=== PATIENT | male | born 2000 | race Two or more races ===

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

== ENCOUNTER → 2019-01-31 | Outpatient (CLI) | payer BC, MEDICAID ==
--- NOTE | 2019-01-31 12:38 | RADIOLOGY REPORT (SQ) ---
EXAM DESCRIPTION: CHEST SINGLE VIEW COMPLETED DATE/TIME: 01/31/2019 12:20 pm REASON FOR STUDY: PRE-OP COMPARISON: None. EXAM PARAMETERS: NUMBER OF VIEWS: One view. TECHNIQUE: Single frontal radiographic view of the chest acquired. RADIATION DOSE: NA LIMITATIONS: None. FINDINGS: LUNGS AND PLEURA: Mild bilateral peribronchial cuffing. There is no consolidation, pleura l effusion or pneumothorax MEDIASTINUM AND HILAR STRUCTURES: No mediastinal or hilar contour abnormality. HEART AND VASCULAR STRUCTURES: The cardiac silhouette and pulmonary vasculature are within normal lopez its. BONES: S shaped rotoscoliosis of the thoracolumbar spine. HARDWARE: Battery pack projecting over the left hemithorax. OTHER: No other finding. IMPRESSION: Bilateral peribronchial cuffing. Correlate with clinical findings to exclude and infect ious or inflammatory small airway disease. TECHNICAL DOCUMENTATION: JOB ID: [id number] [employer]- All Rights Reserved Reading location - IP/workstation name: [email or web address]
--- NOTE | 2019-01-31 22:22 | EKG REPORT ---
SEVERITY:- DEFECTIVE ECG - SINUS TACHYCARDIA DASELINE ARTIFACT. : Confirmed by: Adriana Lin MD 31-Jan-2019 22:21:38
== END ==
LOC: OD 11:50
PROVIDERS: ATTEND Family Medicine
DX: Z01.818 Encounter for other preprocedural examination (principal)
CPT/HCPCS: 71045; 93005; 93010

== ENCOUNTER 2019-03-11 11:21 | Inpatient (IN) | payer BC, MEDICAID ==
[2019-03-11] MEDS ORDERED: KETOROLAC TROMETHAMINE INJ/PF 30 MG/1 ML SDV IV ONE (11:48)
[2019-03-11] MEDS ORDERED: NORMAL SALINE 1000 ML 1,000 ML IV ONE (11:49)
[2019-03-11] MEDS ORDERED: LIDOCAINE 2% URO-JET 5 ML KIT MM ONE (11:51)
--- NOTE | 2019-03-11 11:55 | ER Document Report ---
ED Medical Screen (RME) - General Chief Complaint: Fever Stated Complaint: FEVER Time Seen by Provider: 03/11/19 11:46 Primary Care Provider: JOHNY SHAH DO [Primary Care Provider] - Follow up as needed Mode of Arrival: Wheelchair Information source: Parent Notes: 19-year-old male presented to ED for elevated temperature low blood pressure elevated pulse and septic in appearance. He did go to the urgent care and they sent him to the emergency room due to his tachycardia and fever. He is also got a low set of 93% on 2 L oxygen he is not on oxygen at home. Respirations of 35 pulse is 137. I have started a septic work-up on him. Mother states that he is always congested due to his disabilities but he started with a fever yesterday she gave him rectal suppository of Tylenol yesterday and it seemed like it helped but today she gave him a gram of Tylenol by the tube about 10:00 and it did not bring down his temperature. We will give him Toradol IV at this time since he just had a gram of Tylenol. Start IV fluids start blood work. I have greeted and performed a rapid initial assessment of this patient. A comprehensive ED assessment and evaluation of the patient, analysis of test results and completion of medical decision making process will be conducted by an additional ED providers. TRAVEL OUTSIDE OF THE [place] IN LAST 30 DAYS: No - Related Data Allergies/Adverse Reactions: No Known Allergies Allergy (Verified 04/15/14 15:23) Past Medical History Pulmonary Medical History: Reports: Hx Respiratory Failure - wears O2 chronically at home Neurological Medical History: Reports: Hx Seizures - non verbal and not ambulatory Renal/ Medical History: Denies: Hx Peritoneal Dialysis Past Surgical History: Reports: Hx Orthopedic Surgery - Immunizations Immunizations up to date: Yes Hx Diphtheria, Pertussis, Tetanus Vaccination: No - no pertussis per mom due to seizure possibility Physical Exam - Vital signs Vitals: Temp Pulse BP Pulse Ox 99.3 F 148 H 104/51 L 89 L 03/11/19 11:36 03/11/19 11:36 03/11/19 11:36 03/11/19 11:36 Course - Vital Signs Vital signs: Temp Pulse Resp BP Pulse Ox 99.3 F 148 H 104/51 L 89 L 03/11/19 11:36 03/11/19 11:36 03/11/19 11:36 03/11/19 11:36 Doctor's Discharge - Discharge Referrals: JOHNY SHAH DO [Primary Care Provider] - Follow up as needed
[2019-03-11] MEDS: NORMAL SALINE 1000 ML 1,000 ML IV PRN ×3 (12:07→15:57)
[2019-03-11] MEDS ORDERED: CEFTRIAXONE 1 GM/D5W RTU 1 GM/50 ML RTUPB IV ONE ×2 (12:10→12:40)
[2019-03-11 12:35] LABS: HEMOGLOBIN 15.1 g/dL (13.5-17.0)
[2019-03-11 12:37] LABS: VENOUS BLOOD BASE EXCESS -0.1 mmol/L; VENOUS BLOOD HCO3 24.5 mmol/L (20-32); VENOUS BLOOD PCO2 39.8 mmHg (35-63); VENOUS BLOOD PH 7.41 (7.30-7.42)
[2019-03-11 12:38] LABS: MEAN CORPUSCULAR HEMOGLOBIN 28.8 pg (27.0-33.4); MEAN CORPUSCULAR HGB CONC 32.9 g/dL (32.0-36.0); MEAN CORPUSCULAR VOLUME 88 fl (80-97); PLATELET COUNT 220 10^3/uL (150-450); RED BLOOD COUNT 5.25 10^6/uL (4.35-5.55)
[2019-03-11 12:40] LABS: APPEARANCE,URINE CLEAR; BILIRUBIN,URINE NEGATIVE (NEGATIVE); COLOR,URINE YELLOW; GLUCOSE, URINE NEGATIVE (NEGATIVE); KETONES,URINE NEGATIVE (NEGATIVE); PROTEIN,URINE NEGATIVE (NEGATIVE); URINE SPECIFIC GRAVITY 1.016; UROBILINOGEN,URINE NEGATIVE mg/dL (<2.0)
[2019-03-11 12:40] LABS: INTERNATIONAL RATION (INR) 1.05; PROTHROMBIN TIME 13.7 SEC (11.4-15.4)
[2019-03-11 12:49] LABS: ALKALINE PHOSPHATASE 123 U/L (38-126); ANION GAP 12 (5-19); ASPARTATE AMINO TRANSFERASE 93 U/L (17-59); BILIRUBIN,DIRECT 0.2 mg/dL (0.0-0.4); BILIRUBIN,TOTAL 0.4 mg/dL (0.2-1.3); BLOOD UREA NITROGEN 9 mg/dL (7-20); CALCIUM 9.4 mg/dL (8.4-10.2); CARBON DIOXIDE 23 mmol/L (22-30); CHLORIDE 104 mmol/L (98-107); GLUCOSE 94 mg/dL (75-110); POTASSIUM 4.1 mmol/L (3.6-5.0); TOTAL PROTEIN 7.3 g/dL (6.3-8.2)
[2019-03-11 12:57] LABS: ABSOLUTE LYMPHOCYTES# (MANUAL) 5.8 10^3/uL (0.5-4.7); ABSOLUTE MONOCYTES # (MANUAL) 1.2 10^3/uL (0.1-1.4); BAND NEUTROPHILS % (MANUAL) 3 % (3-5); BASOPHILS % (MANUAL) 0 % (0-2); EOSINOPHILS % (MANUAL) 2 % (0-6); LYMPHOCYTES % (MANUAL) 40 % (13-45); MONOCYTES % (MANUAL) 10 % (3-13); SEGMENTED NEUTROPHILS % (MAN) 37 % (42-78); TOTAL CELLS COUNTED 100
[2019-03-11 12:58] LABS: ANISOCYTOSIS SLIGHT; PLATELET COMMENT ADEQUATE
--- NOTE | 2019-03-11 12:58 | ER Document Report ---
ED Fever - General Chief Complaint: Fever Stated Complaint: FEVER Time Seen by Provider: 03/11/19 11:46 Primary Care Provider: JOHNY CASTORENA DO [Primary Care Provider] - Follow up as needed Mode of Arrival: Wheelchair Information source: Parent Notes: HPI: 19-year-old debilitated male with past medical history as recorded including Mona Gestalt syndrome with frequent seizures, pneumonia about 1 year ago requiring intubation, G-tube and orally fed, presents today with the onset around 1 month ago of some nasal congestion and cough. Patient did receive an unknown antibiotic at that initial presentation at the primary care physician's office Dr. Castorena. Patient continued to have some nasal congestion with a nonproductive cough. Patient developed a fever today. Mom thought his urine was foul smelling. Went to the urgent care today and was sent here secondary to an elevated fever. No vomiting, diarrhea, or obvious complaints of pain. No increased seizures over baseline threshold. Patient did receive rectal Tylenol 1000 mg at 10 AM. Toradol was ordered in triage. ROS: See HPI Unable to obtain secondary to patient's condition Reviewed vital signs and nursing note as charted by RN. PHYSICAL EXAM: CONSTITUTIONAL: Alert but does not vocalize at baseline HEAD: Normocephalic; atraumatic EYES: PERRL; Conjunctivae clear, sclerae non-icteric ENT: Normal nose; no rhinorrhea; moist mucous membranes; pharynx without lesions noted NECK: Supple without meningismus; non-tender; no cervical lymphadenopathy, no masses CARD: Tachycardic and regular; no murmurs; symmetric distal pulses RESP: Normal chest excursion without splinting or tachypnea; scattered rhonchi at the bases ABD/GI: Normal bowel sounds; non-distended; soft, G-tube in place with no surrounding erythema, induration, or drainage; non-tender; no palpable organomegaly or masses GI/: Patient has no penile, scrotal, perineal lesions or erythema BACK: The back appears normal and is non-tender to palpation EXT: Normal ROM in all joints; non-tender to palpation; no edema SKIN: No acute lesions noted NEURO: Limited movement of all 4 extremities at baseline PSYCH: The patient's mood and manner are appropriate. Grooming and personal hygiene are appropriate. TRAVEL OUTSIDE OF THE [place] IN LAST 30 DAYS: No - Related Data Allergies/Adverse Reactions: No Known Allergies Allergy (Verified 04/15/14 15:23) Past Medical History - General Information source: Parent - Social History Smoking Status: Never Smoker Family History: Reviewed & Not Pertinent Patient has suicidal ideation: No Patient has homicidal ideation: No Pulmonary Medical History: Reports: Hx Respiratory Failure - wears O2 ch ronically at home Neurological Medical History: Reports: Hx Seizures - non verbal and not ambulatory Renal/ Medical History: Denies: Hx Peritoneal Dialysis Past Surgical History: Reports: Hx Orthopedic Surgery - Immunizations Immunizations up to date: Yes Hx Diphtheria, Pertussis, Tetanus Vaccination: No - no pertussis per mom due to seizure possibility Physical Exam - Vital signs Vitals: Temp Pulse Resp BP Pulse Ox 99.3 F 148 H 32 H 104/51 L 89 L 03/11/19 11:36 03/11/19 11:36 03/11/19 11:36 03/11/19 11:36 03/11/19 11:36 Course - Re-evaluation Re-evalutation: Given the above history and physical examination, we will do a full septic work- up including an x-ray of the chest and a catheterized urine analysis. We will discuss the possibility of performing a lumbar puncture with the family. 03/11/19 12:58 Initial white blood cell count and urine analysis as recorded. X-ray of the chest is pending. Fluids are currently infusing. I have provided a gram of Rocephin. 03/11/19 13:30 X-ray as recorded. Rocephin and azithromycin started. Lactic acid is unremarkable. Patient's heart rate has improved. Given the comorbidities, we will admit the patient for evaluation overnight to the [facility] under the hospitalist service. - Vital Signs Vital signs: Temp Pulse Resp BP Pulse Ox 101.1 F H 148 H 29 H 128/68 H 93 03/11/19 13:23 03/11/19 11:36 03/11/19 13:01 03/11/19 13:00 03/11/19 13:01 - Laboratory Result Diagrams: 03/11/19 12:00 03/11/19 12:00 Laboratory results interpreted by me: 03/11/19 03/11/19 03/11/19 12:00 12:00 12:17 WBC 12.0 H Seg Neuts % (Manual) 37 L Abs Lymphs (Manual) 5.8 H AST 93 H Urine Ascorbic Acid 40 H Discharge - Discharge Clinical Impression: Bacterial pneumonia Condition: Fair Disposition: ADMITTED INPATIENT Admitting Provider: Felisha (Hospitalist) Unit Admitted: IMCU Referrals: JOHNY CASTORENA DO [Primary Care Provider] - Follow up as needed
--- NOTE | 2019-03-11 13:25 | RADIOLOGY REPORT (SQ) ---
EXAM DESCRIPTION: CHEST SINGLE VIEW COMPLETED DATE/TIME: 03/11/2019 1:03 pm REASON FOR STUDY: SIRS criteria COMPARISON: 01/31/2019. EXAM PARAMETERS: NUMBER OF VIEWS: One view. TECHNIQUE: Single frontal radiographic view of the chest acquired. RADIATION DOSE: NA LIMITATIONS: None. FINDINGS: LUNGS AND PLEURA: Worsening bilateral perihilar infiltrates. Possible left pleural effusi on. MEDIASTINUM AND HILAR STRUCTURES: No masses. Contour normal. HEART AND VASCULAR STRUCTURES: Heart normal in size. Normal vasculature. BONES: No acute findings. Scoliosis. HARDWARE: Electronic stimulator device. OTHER: No other significant finding. IMPRESSION: WORSENING PERIHILAR INFILTRATES, PROBABLY DUE TO PNEUMONIA. TECHNICAL DOCUMENTATION: JOB ID: [id number] [employer]- All Rights Reserved Reading location - IP/workstation name: [email or web address]
[2019-03-11] MEDS ORDERED: AZITHROMYCIN INJ 500 MG VIAL IV ONE (13:29)
[2019-03-11] MEDS ORDERED: ACETAMINOPHEN 325 MG TABLET GT PRN (13:47)
[2019-03-11] MEDS ORDERED: ONDANSETRON HCL INJ/PF 4 MG/2 ML SDV IV PRN (13:47)
[2019-03-11] MEDS ORDERED: VANCOMYCIN HCL 0 MG in DEXTROSE 5%-WATER 250 ML IV NR (14:00)
--- NOTE | 2019-03-11 14:02 | PDOC H&P ---
History of Present Illness Admission Date/PCP: 03/11/19 13:38 JOHNY SHAH DO Patient complains of: Nonverbal but per family had runny nose and cough History of Present Illness: JEROME HAWKINS is a 19 year old male Past Medical History Pulmonary Medical History: Reports: Respiratory Failure - wears O2 chronically at home Neurological Medical History: Reports: Seizures - non verbal and not ambulatory Past Surgical History Past Surgical History: Reports: Orthopedic Surgery, Other - G-tube Social History Information Source: Parent Lives with: Family Smoking Status: Never Smoker Frequency of Alcohol Use: None Hx Recreational Drug Use: No Hx Prescription Drug Abuse: No - Advance Directive Resuscitation Status: Full Code Family History Family History: Hypertension Parental Family History Reviewed: Yes Children Family History Reviewed: Yes Sibling(s) Family History Reviewed.: Yes Medication/Allergy Allergies/Adverse Reactions: No Known Allergies Allergy (Verified 04/15/14 15:23) Review of Systems Constitutional: ABSENT: chills, fever(s), headache(s), weight gain, weight loss Eyes: ABSENT: visual disturbances Ears: ABSENT: hearing changes Nose, Mouth, and Throat: PRESENT: other - Rhinorrhea Cardiovascular: ABSENT: chest pain, dyspnea on exertion, edema, orthropnea, palpitations Respiratory: PRESENT: cough, other - Cough. ABSENT: hemoptysis Gastrointestinal: ABSENT: abdominal pain, constipation, diarrhea, hematemesis, hematochezia, nausea, vomiting Genitourinary: ABSENT: dysuria, hematuria Musculoskeletal: ABSENT: joint swelling Integumentary: ABSENT: rash, wounds Neurological: ABSENT: abnormal gait, abnormal speech, confusion, dizziness, focal weakness, syncope Psychiatric: ABSENT: anxiety, depression, homidical ideation, suicidal ideation Endocrine: ABSENT: cold intolerance, heat intolerance, polydipsia, polyuria Hematologic/Lymphatic: ABSENT: easy bleeding, easy bruising Physical Exam Vital Signs: Temp Pulse Resp BP Pulse Ox 101.1 F H 148 H 29 H 128/68 H 93 03/11/19 13:23 03/11/19 11:36 03/11/19 13:01 03/11/19 13:00 03/11/19 13:01 Intake & Output 03/10/19 03/11/19 03/12/19 06:59 06:59 06:59 Intake Total 2049 Balance 2049 General appearance: PRESENT: no acute distress, well-developed, well-nourished Head exam: PRESENT: atraumatic, normocephalic Eye exam: PRESENT: conjunctiva pink, EOMI, PERRLA. ABSENT: scleral icterus Ear exam: PRESENT: normal external ear exam Mouth exam: PRESENT: moist, tongue midline Neck exam: ABSENT: carotid bruit, JVD, lymphadenopathy, thyromegaly Respiratory exam: PRESENT: decreased breath sounds, rhonchi, symmetrical, unlabored. ABSENT: rales, wheezes Cardiovascular exam: PRESENT: RRR, tachycardia. ABSENT: diastolic murmur, rubs, systolic murmur Pulses: PRESENT: +1 pedal pulses bilateral Vascular exam: PRESENT: normal capillary refill GI/Abdominal exam: PRESENT: normal bowel sounds, soft, other - G-tube in place. ABSENT: distended, guarding, mass, organolmegaly, rebound, tenderness Rectal exam: PRESENT: deferred Extremities exam: PRESENT: full ROM. ABSENT: calf tenderness, clubbing, pedal edema Musculoskeletal exam: PRESENT: other - Poor muscle tone throughout entire body Neurological exam: PRESENT: awake. ABSENT: motor sensory deficit Psychiatric exam: PRESENT: appropriate affect, normal mood Skin exam: PRESENT: dry, intact, warm. ABSENT: cyanosis, rash Adult Front & Back Image: 1 - G-tube Results Laboratory Results: 03/11/19 12:00 03/11/19 12:00 03/11/19 03/11/19 03/11/19 12:00 12:00 12:00 WBC 12.0 H RBC 5.25 Hgb 15.1 Hct 46.0 MCV 88 MCH 28.8 MCHC 32.9 RDW 14.0 Plt Count 220 Seg Neutrophils % Not Reportable VBG pH VBG pCO2 VBG HCO3 VBG Base Excess Sodium 139.4 Potassium 4.1 Chloride 104 Carbon Dioxide 23 Anion Gap 12 BUN 9 Creatinine 0.83 Est GFR ( Amer) > 60 Glucose 94 Lactic Acid 1.7 Calcium 9.4 Total Bilirubin 0.4 AST 93 H Alkaline Phosphatase 123 Total Protein 7.3 Albumin 4.0 Urine Color Urine Appearance Urine pH Ur Specific [place] Urine Protein Urine Glucose (UA) Urine Ketones Urine Blood Urine RBC (Auto) 03/11/19 03/11/19 12:00 12:17 WBC RBC Hgb Hct MCV MCH MCHC RDW Plt Count Seg Neutrophils % VBG pH 7.41 VBG pCO2 39.8 VBG HCO3 24.5 VBG Base Excess -0.1 Sodium Potassium Chloride Carbon Dioxide Anion Gap BUN Creatinine Est GFR ( Amer) Glucose Lactic Acid Calcium Total Bilirubin AST Alkaline Phosphatase Total Protein Albumin Urine Color YELLOW Urine Appearance CLEAR Urine pH 6.0 Ur Specific [place] 1.016 Urine Protein NEGATIVE Urine Glucose (UA) NEGATIVE Urine Ketones NEGATIVE Urine Blood NEGATIVE Urine RBC (Auto) 4 03/11/19 12:00 Troponin I < 0.012 Impressions: Chest X-Ray 03/11/19 12:49 IMPRESSION: WORSENING PERIHILAR INFILTRATES, PROBABLY DUE TO PNEUMONIA. Assessment and Plan - Diagnosis (1) Community acquired pneumonia Is this a current diagnosis for this admission?: Yes Plan: 03/11/2019-given patient's history of Courtland Gestalt syndrome I will be more aggressive with patient's therapy. I will place him on IMCU. Vancomycin and Zosyn per pharmacy dosing. Await cultures. Albuterol nebs every 4 hours as needed shortness of breath. Make change plan of care based on future findings. (2) Tachycardia Is this a current diagnosis for this admission?: Yes Plan: 03/11/2019-most likely secondary to dehydration. Patient was in the 140s when he arrived he had 3 L of normal saline in the ER with heart rate coming down to 1 teens. We will continue normal saline at 125 mL an hour and repeat assess in the a.m. (4) Fever Is this a current diagnosis for this admission?: Yes Plan: 03/11/2019-Tylenol 650 mg per G-tube every 4 hours as needed for fever above 101. Patient will get aggressive antibiotic therapy. Continue to follow (5) Nutrition impaired due to imbalance of nutrients Is this a current diagnosis for this admission?: Yes Plan: 03/11/2019-patient typically takes oral intake except when he is having any issues. At this time I will continue on tube feeds to decrease risk of aspiration. I will give him G-tube PediaSure or equivalent 240 mL with breakfast lunch and dinner. (6) Deford-Gastaut syndrome, intractable, with status epilepticus Is this a current diagnosis for this admission?: Yes Plan: 03/11/2019-seizure precaution. Continue home seizure medications once medication reconciliation has been complete. Patient's family are going to bring in specialized medication for patient we will have to have pharmacy verify at that time and continue meds - Time Time Spent with patient: 35 or more minutes - Inpatient Certification Based on my medical assessment, after consideration of the patient's comorbidities, presenting symptoms, or acuity I expect that the services needed warrant INPATIENT care.: Yes I certify that my determination is in accordance with my understanding of Medicare's requirements for reasonable and necessary INPATIENT services [42 CFR 412.3e].: Yes Medical Necessity: Need for IV Antibiotics - Seizure precaution close monitoring IV fluids IV antibodies
--- NOTE | 2019-03-11 14:13 | RADIOLOGY REPORT (SQ) ---
EXAM DESCRIPTION: KNEE RIGHT 2 VIEWS COMPLETED DATE/TIME: 03/11/2019 1:56 pm REASON FOR STUDY: SWELLING COMPARISON: None. NUMBER OF VIEWS: Two views. TECHNIQUE: AP and lateral radiographic images acquired of the right knee. LIMITATIONS: None. FINDINGS: MINERALIZATION: Normal. BONES: No acute fracture or dislocation. Chronic skeletal changes with markedly thin bones. No worr isome bone lesions. JOINT: No effusion. SOFT TISSUES: No soft tissue swelling. No radio-opaque foreign body. OTHER: No other significant finding. IMPRESSION: CHRONIC SKELETAL CHANGES. OTHERWISE NO ACUTE OR SIGNIFICANT FINDINGS. TECHNICAL DOCUMENTATION: JOB ID: [id number] [employer]- All Rights Reserved Reading location - IP/workstation name: [email or web address]
[2019-03-11 15:09] LABS: ANION GAP 7 (5-19); BLOOD UREA NITROGEN 7 mg/dL (7-20); CALCIUM 7.5 mg/dL (8.4-10.2); CARBON DIOXIDE 21 mmol/L (22-30); CHLORIDE 114 mmol/L (98-107); GLUCOSE 98 mg/dL (75-110); POTASSIUM 3.7 mmol/L (3.6-5.0)
[2019-03-11] MEDS: HEPARIN SOD (PORCINE) 5,000 UNIT/ML 1 ML VIAL SUBCUT SCH ×2 (15:55→21:26)
[2019-03-11] MEDS ORDERED: VANCOMYCIN HCL 1,000 MG in DEXTROSE 5%-WATER 250 ML IV SCH (16:30)
[2019-03-11] MEDS: PIPERACILLIN SODIUM/TAZOBACTAM 3.375 GM in NORMAL SALINE 100 ML IV SCH (20:15)
[2019-03-11] MEDS ORDERED: CLOBAZAM 30 MG PEG SCH (21:00)
[2019-03-11] MEDS: LEVETIRACETAM ORAL SOLN 500 MG/5 ML UDCUP PEG SCH (21:17)
[2019-03-11] MEDS: ZONISAMIDE 100 MG CAPSULE PEG SCH (21:18)
[2019-03-11] MEDS ORDERED: PERAMPANEL 12 MG PEG SCH (22:00)
[2019-03-12] MEDS: NORMAL SALINE 1000 ML 1,000 ML IV PRN (00:05)
[2019-03-12] MEDS: PIPERACILLIN SODIUM/TAZOBACTAM 3.375 GM in NORMAL SALINE 100 ML IV SCH ×4 (00:34→21:31)
--- NOTE | 2019-03-12 02:20 | EKG REPORT ---
SEVERITY:- ABNORMAL ECG - SINUS TACHYCARDIA PROBABLE LEFT ATRIAL ABNORMALITY RIGHT AXIS DEVIATION BORDERLINE T ABNORMALITIES, DIFFUSE LEADS : Confirmed by: Yonas Schultz 12-Mar-2019 02:18:40
[2019-03-12] MEDS: VANCOMYCIN HCL 1,000 MG in DEXTROSE 5%-WATER 250 ML IV SCH ×3 (02:53→17:19)
[2019-03-12 05:14] LABS: HEMATOCRIT 37.3 % (37.9-51.0); MEAN CORPUSCULAR HEMOGLOBIN 29.4 pg (27.0-33.4); MEAN CORPUSCULAR HGB CONC 32.9 g/dL (32.0-36.0); MEAN CORPUSCULAR VOLUME 89 fl (80-97); PLATELET COUNT 171 10^3/uL (150-450); RED BLOOD COUNT 4.17 10^6/uL (4.35-5.55); RED CELL DISTRIBUTION WIDTH 13.9 % (11.5-14.0); WHITE BLOOD COUNT 8.8 10^3/uL (4.0-10.5)
[2019-03-12 05:23] LABS: HEMOGLOBIN 12.3 g/dL (13.5-17.0)
[2019-03-12 05:25] LABS: PHOSPHORUS 2.9 mg/dL (2.5-4.5)
[2019-03-12] MEDS: HEPARIN SOD (PORCINE) 5,000 UNIT/ML 1 ML VIAL SUBCUT SCH ×3 (05:45→21:32)
[2019-03-12] MEDS: DOCUSATE SODIUM 100 MG/10 ML UDC PO SCH ×2 (05:45→17:42)
[2019-03-12] MEDS ORDERED: INFLUENZA QUAD (6MOS+) 2019-20 VAC 0.5 ML SYR IM ONE (08:00)
[2019-03-12] MEDS ORDERED: CLOBAZAM 20 MG PEG SCH (09:00)
--- NOTE | 2019-03-12 09:02 | PDOC PROGRESS REPORT ---
Subjective Progress Note for:: 03/12/19 Subjective:: 03/12/2019-no acute episodes overnight-patient is nonverbal and cannot answer questions pertaining to complaints. Reason For Visit: COMMUNITY ACQUIRED PNEUMONIA, KERWIN GESTALT Physical Exam Vital Signs: Temp Pulse Resp BP Pulse Ox 97.6 F 103 H 14 114/54 L 94 03/12/19 07:55 03/12/19 07:55 03/12/19 07:55 03/12/19 07:55 03/12/19 07:55 Intake & Output 03/11/19 03/12/19 03/13/19 06:59 06:59 06:59 Intake Total 4850 Output Total 200 Balance 4650 Weight 64.3 kg General appearance: PRESENT: no acute distress, well-developed, well-nourished Neck exam: ABSENT: carotid bruit, JVD, lymphadenopathy, thyromegaly Respiratory exam: PRESENT: clear to auscultation catracho, rhonchi. ABSENT: rales, wheezes Cardiovascular exam: PRESENT: RRR. ABSENT: diastolic murmur, rubs, systolic murmur Pulses: PRESENT: +1 pedal pulses bilateral Vascular exam: PRESENT: normal capillary refill GI/Abdominal exam: PRESENT: normal bowel sounds, soft. ABSENT: distended, guarding, mass, organolmegaly, rebound, tenderness Extremities exam: PRESENT: full ROM, other. ABSENT: calf tenderness, clubbing, pedal edema Neurological exam: PRESENT: awake Psychiatric exam: PRESENT: appropriate affect Skin exam: PRESENT: dry, intact, warm. ABSENT: cyanosis, rash Results Laboratory Results: 03/12/19 03:33 03/11/19 14:10 03/11/19 03/11/19 03/11/19 12:00 12:00 12:00 WBC 12.0 H RBC 5.25 Hgb 15.1 Hct 46.0 MCV 88 MCH 28.8 MCHC 32.9 RDW 14.0 Plt Count 220 Seg Neutrophils % Not Reportable VBG pH VBG pCO2 VBG HCO3 VBG Base Excess Sodium 139.4 Potassium 4.1 Chloride 104 Carbon Dioxide 23 Anion Gap 12 BUN 9 Creatinine 0.83 Est GFR ( Amer) > 60 Glucose 94 Lactic Acid 1.7 Calcium 9.4 Phosphorus Magnesium Total Bilirubin 0.4 AST 93 H Alkaline Phosphatase 123 Total Protein 7.3 Albumin 4.0 Urine Color Urine Appearance Urine pH Ur Specific [place] Urine Protein Urine Glucose (UA) Urine Ketones Urine Blood Urine RBC (Auto) 03/11/19 03/11/19 03/11/19 12:00 12:17 14:10 WBC RBC Hgb Hct MCV MCH MCHC RDW Plt Count Seg Neutrophils % VBG pH 7.41 VBG pCO2 39.8 VBG HCO3 24.5 VBG Base Excess -0.1 Sodium 142.2 Potassium 3.7 Chloride 114 H Carbon Dioxide 21 L Anion Gap 7 BUN 7 Creatinine 0.69 Est GFR ( Amer) > 60 Glucose 98 Lactic Acid Calcium 7.5 L Phosphorus Magnesium Total Bilirubin AST Alkaline Phosphatase Total Protein Albumin Urine Color YELLOW Urine Appearance CLEAR Urine pH 6.0 Ur Specific [place] 1.016 Urine Protein NEGATIVE Urine Glucose (UA) NEGATIVE Urine Ketones NEGATIVE Urine Blood NEGATIVE Urine RBC (Auto) 4 03/12/19 03/12/19 03:33 03:33 WBC 8.8 RBC 4.17 L Hgb 12.3 L D Hct 37.3 L MCV 89 MCH 29.4 MCHC 32.9 RDW 13.9 Plt Count 171 Seg Neutrophils % VBG pH VBG pCO2 VBG HCO3 VBG Base Excess Sodium Potassium Chloride Carbon Dioxide Anion Gap BUN Creatinine Est GFR ( Amer) Glucose Lactic Acid Calcium Phosphorus 2.9 Magnesium 1.9 Total Bilirubin AST Alkaline Phosphatase Total Protein Albumin Urine Color Urine Appearance Urine pH Ur Specific [place] Urine Protein Urine Glucose (UA) Urine Ketones Urine Blood Urine RBC (Auto) 03/11/19 12:00 Troponin I < 0.012 Impressions: Chest X-Ray 03/11/19 12:49 IMPRESSION: WORSENING PERIHILAR INFILTRATES, PROBABLY DUE TO PNEUMONIA. Knee X-Ray 03/11/19 13:29 IMPRESSION: CHRONIC SKELETAL CHANGES. OTHERWISE NO ACUTE OR SIGNIFICANT FINDINGS. 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 I will place him on IMCU. Vancomycin and Zosyn per pharmacy dosing. Await cultures. Albuterol nebs every 4 hours as needed shortness of breath. Make change plan of care based on future findings. 2018-continue antibiotic therapy. Leukocytosis has improved this morning. Await cultures. (2) Tachycardia Is this a current diagnosis for this admission?: Yes Plan: 03/11/2019-most likely secondary to dehydration. Patient was in the 140s when he arrived he had 3 L of normal saline in the ER with heart rate coming down to 1 teens. We will continue normal saline at 125 mL an hour and repeat assess in the a.m. 03/12/2019-improved. Heart rate down to 103 this morning. Continue hydration although on one drop the rate to normal saline at 50 mL/h (3) Fever Is this a current diagnosis for this admission?: Yes Plan: 03 12 2019-stable this morning temps 97.6 continue to follow. Continue PRN Tylenol (4) Nutrition impaired due to imbalance of nutrients Is this a current diagnosis for this admission?: Yes Plan: 03/11/2019-patient typically takes oral intake except when he is having any issues. At this time I will continue on tube feeds to decrease risk of aspi ration. I will give him G-tube PediaSure or equivalent 240 mL with breakfast lunch and dinner. 03/12/2019-continue PediaSure 240 mL's with breakfast lunch and dinner (5) [place]-Gastaut syndrome, intractable, with status epilepticus Is this a current diagnosis for this admission?: Yes Plan: 03/11/2019-seizure precaution. Continue home seizure medications once medication reconciliation has been complete. Patient's family are going to bring in specialized medication for patient we will have to have pharmacy verify at that time and continue meds 03/12/2019-continue seizure precaution. Continue all home antiepileptics. - Time Time Spent with patient: 15-24 minutes - Inpatient Certification Based on my medical assessment, after consideration of the patient's comorbidities, presenting symptoms, or acuity I expect that the services needed warrant INPATIENT care.: Yes I certify that my determination is in accordance with my understanding of Medicare's requirements for reasonable and necessary INPATIENT services [42 CFR 412.3e].: Yes Medical Necessity: Significant Comorbidiites Make Outpatient Treatment Too Risky, Need Close Monitoring Due to Risk of Patient Decompensation, Need For IV Fluids
[2019-03-12] MEDS ORDERED: CALCIUM GLUCONATE 2,000 MG in DEXTROSE 5%-WATER 100 ML IV ONE (10:00)
[2019-03-12] MEDS ORDERED: CANNABIDIOL PO SCH (10:00)
[2019-03-12] MEDS ORDERED: EXTRACT PO SCH (10:00)
[2019-03-12] MEDS: ALBUTEROL SULFATE 0.083% NEB 2.5 MG/3 ML AMPUL NEB PRN ×2 (10:14→15:54)
[2019-03-12] MEDS: LEVETIRACETAM ORAL SOLN 500 MG/5 ML UDCUP PEG SCH ×2 (12:40→21:31)
[2019-03-12] MEDS: CETIRIZINE 10 MG TABLET PEG SCH (12:41)
[2019-03-12] MEDS: ZONISAMIDE 100 MG CAPSULE PEG SCH ×2 (12:41→21:38)
[2019-03-12] MEDS: PYRIDOXINE HCL 50 MG TABLET PEG SCH (12:41)
[2019-03-12 14:23] LABS: ANION GAP 7 (5-19); BLOOD UREA NITROGEN 6 mg/dL (7-20); CALCIUM 8.3 mg/dL (8.4-10.2); CARBON DIOXIDE 22 mmol/L (22-30); CHLORIDE 112 mmol/L (98-107); GLUCOSE 131 mg/dL (75-110); POTASSIUM 3.5 mmol/L (3.6-5.0)
[2019-03-12 17:22] LABS: VANCOMYCIN,TROUGH 20.2 ug/mL (5.0-20.0)
[2019-03-13] MEDS: NORMAL SALINE 1000 ML 1,000 ML IV PRN (00:51)
[2019-03-13] MEDS: PIPERACILLIN SODIUM/TAZOBACTAM 3.375 GM in NORMAL SALINE 100 ML IV SCH ×4 (00:52→17:09)
[2019-03-13] MEDS: VANCOMYCIN HCL 1,000 MG in DEXTROSE 5%-WATER 250 ML IV SCH ×3 (02:49→17:49)
[2019-03-13] MEDS: DOCUSATE SODIUM 100 MG/10 ML UDC PO SCH ×2 (05:58→17:48)
[2019-03-13] MEDS: HEPARIN SOD (PORCINE) 5,000 UNIT/ML 1 ML VIAL SUBCUT SCH ×3 (05:58→21:12)
[2019-03-13 07:01] LABS: HEMATOCRIT 38.7 % (37.9-51.0); HEMOGLOBIN 12.6 g/dL (13.5-17.0); MEAN CORPUSCULAR HEMOGLOBIN 29.1 pg (27.0-33.4); MEAN CORPUSCULAR HGB CONC 32.4 g/dL (32.0-36.0); MEAN CORPUSCULAR VOLUME 90 fl (80-97); PLATELET COUNT 183 10^3/uL (150-450); RED BLOOD COUNT 4.32 10^6/uL (4.35-5.55); WHITE BLOOD COUNT 7.2 10^3/uL (4.0-10.5)
[2019-03-13 07:21] LABS: ANION GAP 8 (5-19); BLOOD UREA NITROGEN 3 mg/dL (7-20); CALCIUM 8.4 mg/dL (8.4-10.2); CARBON DIOXIDE 22 mmol/L (22-30); CHLORIDE 117 mmol/L (98-107); GLUCOSE 79 mg/dL (75-110); POTASSIUM 3.8 mmol/L (3.6-5.0)
[2019-03-13] MEDS: ZONISAMIDE 100 MG CAPSULE PEG SCH ×2 (09:18→21:06)
[2019-03-13] MEDS: CETIRIZINE 10 MG TABLET PEG SCH (09:18)
[2019-03-13] MEDS: PYRIDOXINE HCL 50 MG TABLET PEG SCH (09:18)
[2019-03-13] MEDS: LEVETIRACETAM ORAL SOLN 500 MG/5 ML UDCUP PEG SCH ×2 (09:18→21:05)
[2019-03-13] MEDS: ALBUTEROL SULFATE 0.083% NEB 2.5 MG/3 ML AMPUL NEB PRN (10:15)
[2019-03-13 15:15] LABS: ANION GAP 10 (5-19); CALCIUM 8.7 mg/dL (8.4-10.2); CARBON DIOXIDE 22 mmol/L (22-30); CHLORIDE 113 mmol/L (98-107); GLUCOSE 123 mg/dL (75-110); POTASSIUM 3.6 mmol/L (3.6-5.0)
[2019-03-13 15:18] LABS: BLOOD UREA NITROGEN < 2 mg/dL (7-20)
[2019-03-13] MEDS ORDERED: GUAIFENESIN SYRP 200 MG/10 ML UDC PEG PRN (19:04)
--- NOTE | 2019-03-13 19:06 | PDOC PROGRESS REPORT ---
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 The patient was seen on afternoon rounds with his mother present. He was found resting in bed comfortably on supplemental oxygen via nasal cannula at 2 L/min; he is not home O2 dependent. He was sleeping soundly and did not wake when I said his name; I did not make further attempts to wake him today. Per mother, he appears to be resting much more comfortably with decreased work of breathing. However, he does continue to have a wet sounding cough (unable to expectorate) and increased lethargy from baseline. Overall, she does report that he appears improved. ROS is limited secondary to baseline mental status. She has no other questions or concerns at this time. No concerns per nursing. Reason For Visit: COMMUNITY ACQUIRED PNEUMONIA, JOSE DAVID GESTALT Physical Exam Vital Signs: Temp Pulse Resp BP Pulse Ox 97.9 F 89 14 112/62 100 03/13/19 15:59 03/13/19 15:59 03/13/19 15:59 03/13/19 15:59 03/13/19 15:59 Intake & Output 03/12/19 03/13/19 03/14/19 06:59 06:59 06:59 Intake Total 4850 2220 450 Output Total 200 Balance 4650 2220 450 Weight 64.3 kg 70.3 kg General appearance: PRESENT: no acute distress, well-nourished Head exam: PRESENT: atraumatic, normocephalic Eye exam: PRESENT: conjunctiva pink, EOMI, PERRLA. ABSENT: scleral icterus Mouth exam: PRESENT: moist, tongue midline Respiratory exam: PRESENT: rhonchi, symmetrical, unlabored, other - Supplemental oxygen by nasal cannula. ABSENT: rales, wheezes Cardiovascular exam: PRESENT: RRR, +S1, +S2. ABSENT: diastolic murmur, rubs, systolic murmur Pulses: PRESENT: normal dorsalis pedis pul Vascular exam: PRESENT: normal capillary refill GI/Abdominal exam: PRESENT: normal bowel sounds, soft. ABSENT: distended, guarding, mass, organolmegaly, rebound, tenderness Rectal exam: PRESENT: deferred Extremities exam: PRESENT: full ROM, other - Flaccid/underdeveloped musculature bilateral lower extremities. ABSENT: calf tenderness, clubbing, pedal edema Neurological exam: PRESENT: CN II-XII grossly intact, other - Sleeping soundly. ABSENT: motor sensory deficit Skin exam: PRESENT: dry, intact, warm. ABSENT: cyanosis, rash Results Laboratory Results: 03/13/19 06:10 03/13/19 14:15 03/13/19 03/13/19 03/13/19 06:10 06:10 14:15 WBC 7.2 RBC 4.32 L Hgb 12.6 L Hct 38.7 MCV 90 MCH 29.1 MCHC 32.4 RDW 14.0 Plt Count 183 Sodium 146.5 H 144.8 Potassium 3.8 3.6 Chloride 117 H 113 H Carbon Dioxide 22 22 Anion Gap 8 10 BUN 3 L < 2 L Creatinine 0.71 0.67 Est GFR ( Amer) > 60 > 60 Glucose 79 123 H Calcium 8.4 8.7 03/11/19 12:00 Troponin I < 0.012 Impressions: Chest X-Ray 03/11/19 12:49 IMPRESSION: WORSENING PERIHILAR INFILTRATES, PROBABLY DUE TO PNEUMONIA. Knee X-Ray 03/11/19 13:29 IMPRESSION: CHRONIC SKELETAL CHANGES. OTHERWISE NO ACUTE OR SIGNIFICANT FINDINGS. Assessment and Plan - Diagnosis (1) Community acquired pneumonia Qualifiers: Laterality: unspecified laterality Qualified Code(s): J18.9 - Pneumonia, unspecified organism Is this a current diagnosis for this admission?: Yes Plan: [place] [facility] [place]. Blood cultures are negative at 48 hours. Sputum culture is requested; have asked respiratory therapy to assist. Empirically placed on IV vancomycin and Zosyn. Continue supplemental oxygen as needed to maintain saturations greater than 89%. Start scheduled nebulizer treatments; continue as needed nebs. Start Robitussin via PEG. Chest physiotherapy. (2) Tachycardia Is this a current diagnosis for this admission?: Yes Plan: Improved; secondary to #1. (3) Fever Is this a current diagnosis for this admission?: Yes Plan: Improved; patient has been afebrile x48 hours. Secondary to #1. (4) Nutrition impaired due to imbalance of nutrients Is this a current diagnosis for this admission?: Yes Plan: Per patient's mother, patient typically eats pured diet with PediaSure via PEG for nutritional support. Due to lethargy/acute illness; he is not currently taking p.o. We will continue nutrition via PEG. Registered dietitian is consulted. (5) [place]-Gastaut syndrome, intractable, with status epilepticus Is this a current diagnosis for this admission?: Yes Plan: Continue seizure precaution. Continue all home antiepileptics. - Time Time Spent with patient: 25-34 minutes Medications reviewed and adjusted accordingly: Yes Anticipated discharge: Home Within: within 72 hours
[2019-03-13] MEDS: IPRATROPIUM/ALBUTEROL 0.5-2.5 MG/3 ML AMPUL NEB SCH (20:08)
[2019-03-14] MEDS: PIPERACILLIN SODIUM/TAZOBACTAM 3.375 GM in NORMAL SALINE 100 ML IV SCH ×5 (00:40→23:59)
[2019-03-14] MEDS: VANCOMYCIN HCL 1,000 MG in DEXTROSE 5%-WATER 250 ML IV SCH ×3 (03:27→17:44)
[2019-03-14] MEDS: NORMAL SALINE 1000 ML 1,000 ML IV PRN (03:27)
[2019-03-14 05:03] LABS: HEMATOCRIT 37.6 % (37.9-51.0); HEMOGLOBIN 12.5 g/dL (13.5-17.0); MEAN CORPUSCULAR HEMOGLOBIN 29.4 pg (27.0-33.4); MEAN CORPUSCULAR HGB CONC 33.2 g/dL (32.0-36.0); MEAN CORPUSCULAR VOLUME 89 fl (80-97); PLATELET COUNT 191 10^3/uL (150-450); RED BLOOD COUNT 4.24 10^6/uL (4.35-5.55); RED CELL DISTRIBUTION WIDTH 14.3 % (11.5-14.0)
[2019-03-14] MEDS: DOCUSATE SODIUM 100 MG/10 ML UDC PO SCH ×2 (06:21→17:46)
[2019-03-14] MEDS: HEPARIN SOD (PORCINE) 5,000 UNIT/ML 1 ML VIAL SUBCUT SCH ×3 (06:21→21:41)
[2019-03-14] MEDS: ZONISAMIDE 100 MG CAPSULE PEG SCH ×2 (08:03→21:40)
[2019-03-14] MEDS: LEVETIRACETAM ORAL SOLN 500 MG/5 ML UDCUP PEG SCH ×2 (08:04→21:40)
[2019-03-14] MEDS: IPRATROPIUM/ALBUTEROL 0.5-2.5 MG/3 ML AMPUL NEB SCH ×2 (08:29→19:47)
[2019-03-14] MEDS: PYRIDOXINE HCL 50 MG TABLET PEG SCH (09:29)
[2019-03-14] MEDS: CETIRIZINE 10 MG TABLET PEG SCH (09:29)
--- NOTE | 2019-03-14 18:23 | PDOC PROGRESS REPORT ---
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 The patient was seen on afternoon rounds with his father present. He was found resting in bed comfortably on supplemental oxygen via nasal cannula at 2 L/min; he is not home O2 dependent. He was sleeping soundly and did not wake when I said his name; though did stir slightly. Per family, patient appears slightly improved today; increased time awake. ROS is limited secondary to baseline mental status. They have no new questions or concerns at this time. No concerns per nursing. Reason For Visit: COMMUNITY ACQUIRED PNEUMONIA, JOSE DAVID GESTALT Physical Exam Vital Signs: Temp Pulse Resp BP Pulse Ox 98.4 F 93 22 H 112/56 L 99 03/14/19 08:38 03/14/19 14:00 03/14/19 08:38 03/14/19 08:38 03/14/19 08:38 Intake & Output 03/13/19 03/14/19 03/15/19 06:59 06:59 06:59 Intake Total 2220 2166 550 Balance 2220 2166 550 Weight 70.3 kg 69.5 kg General appearance: PRESENT: no acute distress, well-nourished Head exam: PRESENT: atraumatic, normocephalic Mouth exam: PRESENT: moist, tongue midline Neck exam: ABSENT: carotid bruit, JVD, lymphadenopathy, thyromegaly Respiratory exam: PRESENT: clear to auscultation catracho, rhonchi - Scant, symmetrical, unlabored, other - Supplemental oxygen by nasal cannula. ABSENT: rales, wheezes Cardiovascular exam: PRESENT: RRR. ABSENT: diastolic murmur, rubs, systolic murmur Pulses: PRESENT: normal dorsalis pedis pul Vascular exam: PRESENT: normal capillary refill GI/Abdominal exam: PRESENT: normal bowel sounds, soft Rectal exam: PRESENT: deferred Extremities exam: PRESENT: other - Flaccid/underdeveloped musculature bilateral lower extremities. ABSENT: calf tenderness, clubbing, pedal edema Neurological exam: PRESENT: other - Sleeping soundly Skin exam: PRESENT: dry, intact, warm. ABSENT: cyanosis, rash Results Laboratory Results: 03/14/19 04:20 03/13/19 14:15 03/14/19 04:20 WBC 6.0 RBC 4.24 L Hgb 12.5 L Hct 37.6 L MCV 89 MCH 29.4 MCHC 33.2 RDW 14.3 H Plt Count 191 03/11/19 12:00 Troponin I < 0.012 Impressions: Chest X-Ray 03/11/19 12:49 IMPRESSION: WORSENING PERIHILAR INFILTRATES, PROBABLY DUE TO PNEUMONIA. Knee X-Ray 03/11/19 13:29 IMPRESSION: CHRONIC SKELETAL CHANGES. OTHERWISE NO ACUTE OR SIGNIFICANT FINDINGS. Assessment and Plan - Diagnosis (1) Community acquired pneumonia Qualifiers: Laterality: unspecified laterality Qualified Code(s): J18.9 - Pneumonia, u nspecified organism Is this a current diagnosis for this admission?: Yes Plan: Patient is admitted to [facility] [place] on continuous cardiac telemetry. Blood cultures are negative at 72 hours. Sputum culture is requested; have asked respiratory therapy to assist. Empirically placed on IV vancomycin and Zosyn; will discontinue vancomycin today as the patient remains afebrile with a normal WBC and negative cultures.. Continue supplemental oxygen as needed to maintain saturations greater than 89%. Continue scheduled and as needed nebulizer treatments Continue Robitussin via PEG. Chest physiotherapy. (2) Tachycardia Is this a current diagnosis for this admission?: Yes Plan: Resolved; secondary to #1. (3) Fever Is this a current diagnosis for this admission?: Yes Plan: Resolved; patient has been afebrile x48 hours. Secondary to #1. (4) Nutrition impaired due to imbalance of nutrients Is this a current diagnosis for this admission?: Yes Plan: Per patient's mother, patient typically eats pured diet with PediaSure via PEG for nutritional support. Due to lethargy/acute illness; he is not currently taking p.o. We will continue nutrition via PEG. Registered dietitian is consulted. (5) [place]-Gastaut syndrome, intractable, with status epilepticus Is this a current diagnosis for this admission?: Yes Plan: Continue seizure precaution. Continue all home antiepileptics. - Time Time Spent with patient: 15-24 minutes Medications reviewed and adjusted accordingly: Yes Anticipated discharge: Home with Homehealth Within: within 48 hours
[2019-03-15 05:05] LABS: HEMATOCRIT 38.5 % (37.9-51.0); HEMOGLOBIN 12.6 g/dL (13.5-17.0); MEAN CORPUSCULAR HEMOGLOBIN 29.1 pg (27.0-33.4); MEAN CORPUSCULAR HGB CONC 32.7 g/dL (32.0-36.0); MEAN CORPUSCULAR VOLUME 89 fl (80-97); PLATELET COUNT 190 10^3/uL (150-450); RED BLOOD COUNT 4.32 10^6/uL (4.35-5.55); RED CELL DISTRIBUTION WIDTH 14.2 % (11.5-14.0); WHITE BLOOD COUNT 5.9 10^3/uL (4.0-10.5)
[2019-03-15] MEDS: PIPERACILLIN SODIUM/TAZOBACTAM 3.375 GM in NORMAL SALINE 100 ML IV SCH ×2 (05:32→13:28)
[2019-03-15] MEDS: DOCUSATE SODIUM 100 MG/10 ML UDC PO SCH ×2 (05:34→17:49)
[2019-03-15 05:35] LABS: ALBUMIN 2.9 g/dL (3.5-5.0); ALKALINE PHOSPHATASE 86 U/L (38-126); ANION GAP 8 (5-19); ASPARTATE AMINO TRANSFERASE 75 U/L (17-59); BILIRUBIN,DIRECT 0.1 mg/dL (0.0-0.4); BILIRUBIN,TOTAL 0.2 mg/dL (0.2-1.3); CALCIUM 8.6 mg/dL (8.4-10.2); CARBON DIOXIDE 23 mmol/L (22-30); CHLORIDE 118 mmol/L (98-107); GLUCOSE 83 mg/dL (75-110); POTASSIUM 3.7 mmol/L (3.6-5.0); TOTAL PROTEIN 5.7 g/dL (6.3-8.2)
[2019-03-15] MEDS: HEPARIN SOD (PORCINE) 5,000 UNIT/ML 1 ML VIAL SUBCUT SCH ×3 (05:40→21:34)
[2019-03-15 05:41] LABS: BLOOD UREA NITROGEN < 2 mg/dL (7-20)
[2019-03-15] MEDS: IPRATROPIUM/ALBUTEROL 0.5-2.5 MG/3 ML AMPUL NEB SCH ×2 (07:54→20:14)
[2019-03-15] MEDS: LEVETIRACETAM ORAL SOLN 500 MG/5 ML UDCUP PEG SCH ×2 (09:53→21:35)
[2019-03-15] MEDS: ZONISAMIDE 100 MG CAPSULE PEG SCH ×2 (09:54→21:34)
[2019-03-15] MEDS: CETIRIZINE 10 MG TABLET PEG SCH (09:54)
[2019-03-15] MEDS: PYRIDOXINE HCL 50 MG TABLET PEG SCH (09:54)
--- NOTE | 2019-03-15 13:14 | PDOC PROGRESS REPORT ---
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 The patient was seen on morning rounds with his mother present. He was found resting in bed comfortably on supplemental oxygen via nasal cannula at 2 L/min; he is not home O2 dependent. He was sleeping soundly and did not wake when I said his name. Mom reports that she thinks he is feeling somewhat better, was more awake for her this morning, however may have had a typical seizure shortly after shift change this morning lasting 2 to 3 minutes per mom and abated utilizing his stimulator. Mother is unconcerned by seizure activity; states that this did appear to be similar to his typical seizures. ROS is limited secondary to baseline mental status. She has no new questions or concerns at this time. No concerns per nursing. Reason For Visit: COMMUNITY ACQUIRED PNEUMONIA, JOSE DAVID GESTALT Physical Exam Vital Signs: Temp Pulse Resp BP Pulse Ox 97.7 F 88 20 117/52 L 95 03/15/19 03:46 03/15/19 07:54 03/15/19 07:54 03/15/19 03:46 03/15/19 07:54 Intake & Output 03/14/19 03/15/19 03/16/19 06:59 06:59 06:59 Intake Total 2166 900 100 Balance 2166 900 100 Weight 69.5 kg 69.5 kg General appearance: PRESENT: no acute distress, well-developed, well-nourished Head exam: PRESENT: atraumatic, normocephalic Eye exam: PRESENT: conjunctiva pink, PERRLA. ABSENT: scleral icterus Mouth exam: PRESENT: moist, tongue midline Respiratory exam: PRESENT: rhonchi - Slight, symmetrical, unlabored, other - Supplemental oxygen by nasal cannula. ABSENT: rales, wheezes Cardiovascular exam: PRESENT: RRR. ABSENT: diastolic murmur, rubs, systolic murmur GI/Abdominal exam: PRESENT: normal bowel sounds, soft, other - PEG tube. ABSENT: distended, guarding, mass, organolmegaly, rebound, tenderness Extremities exam: PRESENT: full ROM, pedal edema - Trace bilaterally. ABSENT: calf tenderness, clubbing Neurological exam: PRESENT: other - Sleeping soundly; seizure activity this morning per mother. Skin exam: PRESENT: dry, intact, warm. ABSENT: cyanosis, rash Results Laboratory Results: 03/15/19 04:34 03/15/19 04:34 03/15/19 03/15/19 04:34 04:34 WBC 5.9 RBC 4.32 L Hgb 12.6 L Hct 38.5 MCV 89 MCH 29.1 MCHC 32.7 RDW 14.2 H Plt Count 190 Sodium 148.9 H Potassium 3.7 Chloride 118 H Carbon Dioxide 23 Anion Gap 8 BUN < 2 L Creatinine 0.72 Est GFR ( Amer) > 60 Glucose 83 Calcium 8.6 Total Bilirubin 0.2 AST 75 H Alkaline Phosphatase 86 Total Protein 5.7 L Albumin 2.9 L 03/11/19 12:00 Troponin I < 0.012 Impressions: Chest X-Ray 03/11/19 12:49 IMPRESSION: WORSENING PERIHILAR INFILTRATES, PROBABLY DUE TO PNEUMONIA. Knee X-Ray 03/11/19 13:29 IMPRESSION: CHRONIC SKELETAL CHANGES. OTHERWISE NO ACUTE OR SIGNIFICANT FINDINGS. Assessment and Plan - Diagnosis (1) Community acquired pneumonia Qualifiers: Laterality: unspecified laterality Qualified Code(s): J18.9 - Pneumonia, unspecified organism Is this a current diagnosis for this admission?: Yes Plan: Patient [place] [facility] [place]. Blood cultures are negative at 4 days. Sputum culture is requested; have asked respiratory therapy to assist. Empirically placed on IV vancomycin and Zosyn Vancomycin discontinued on Day #3. Consider transition from Zosyn to Augmentin per PEG tomorrow. Continue supplemental oxygen as needed to maintain saturations greater than 89%. Will ask nursing to begin weaning oxygen. Continue scheduled and as needed nebulizer treatments Continue Robitussin via PEG. Chest physiotherapy. We will ask nursing to begin weaning oxygen. (2) Tachycardia Is this a current diagnosis for this admission?: Yes Plan: Resolved; secondary to #1. (3) Fever Is this a current diagnosis for this admission?: Yes Plan: Resolved; patient has been afebrile x48 hours. Secondary to #1. (4) Nutrition impaired due to imbalance of nutrients Is this a current diagnosis for this admission?: Yes Plan: Per patient's mother, patient typically eats pured diet with PediaSure via PEG for nutritional support. Due to lethargy/acute illness; he is not currently taking p.o. We will continue nutrition via PEG. Registered dietitian is consulted. (5) [place]-Gastaut syndrome, intractable, with status epilepticus Is this a current diagnosis for this admission?: Yes Plan: Possible seizure this morning per mother; abated utilizing stimulator. Mother reports typical seizure and postictal behaviors. Continue seizure precaution. Continue all home antiepileptics. - Time Time Spent with patient: 25-34 minutes Medications reviewed and adjusted accordingly: Yes Anticipated discharge: Home Within: within 48 hours - Once more alert.
[2019-03-15] MEDS: AMOXICILLIN TR/POT CLAVULANATE ES 600-42.9 MG/5 ML 75 ML PO SCH (21:36)
[2019-03-16] MEDS: NORMAL SALINE 1000 ML 1,000 ML IV PRN (05:52)
[2019-03-16] MEDS: HEPARIN SOD (PORCINE) 5,000 UNIT/ML 1 ML VIAL SUBCUT SCH (05:55)
[2019-03-16 07:22] LABS: HEMOGLOBIN 13.3 g/dL (13.5-17.0); MEAN CORPUSCULAR HGB CONC 32.4 g/dL (32.0-36.0); MEAN CORPUSCULAR VOLUME 90 fl (80-97); PLATELET COUNT 213 10^3/uL (150-450); RED BLOOD COUNT 4.58 10^6/uL (4.35-5.55); RED CELL DISTRIBUTION WIDTH 14.3 % (11.5-14.0); WHITE BLOOD COUNT 6.2 10^3/uL (4.0-10.5)
[2019-03-16 07:40] LABS: ANION GAP 9 (5-19); BLOOD UREA NITROGEN 4 mg/dL (7-20); CALCIUM 8.5 mg/dL (8.4-10.2); CARBON DIOXIDE 20 mmol/L (22-30); CHLORIDE 118 mmol/L (98-107); GLUCOSE 84 mg/dL (75-110); POTASSIUM 4.1 mmol/L (3.6-5.0)
[2019-03-16] MEDS: DOCUSATE SODIUM 100 MG/10 ML UDC PO SCH (07:46)
[2019-03-16] MEDS: IPRATROPIUM/ALBUTEROL 0.5-2.5 MG/3 ML AMPUL NEB SCH (07:54)
[2019-03-16] MEDS: LEVETIRACETAM ORAL SOLN 500 MG/5 ML UDCUP PEG SCH (09:21)
[2019-03-16] MEDS: ZONISAMIDE 100 MG CAPSULE PEG SCH (09:24)
[2019-03-16] MEDS: PYRIDOXINE HCL 50 MG TABLET PEG SCH (09:24)
[2019-03-16] MEDS: AMOXICILLIN TR/POT CLAVULANATE ES 600-42.9 MG/5 ML 75 ML PO SCH (09:24)
[2019-03-16] MEDS: CETIRIZINE 10 MG TABLET PEG SCH (09:25)
--- NOTE | 2019-03-16 10:03 | PDOC DISCHARGE SUMMARY ---
Impression - Admit/DC Date/PCP Admission Date/Primary Care Provider: 03/11/19 13:38 JOHNY SHAH DO Discharge Date: 03/16/19 - Discharge Diagnosis (1) Community acquired pneumonia Is this a current diagnosis for this admission?: Yes (2) Tachycardia Is this a current diagnosis for this admission?: Yes (3) Fever Is this a current diagnosis for this admission?: Yes (4) Nutrition impaired due to imbalance of nutrients Is this a current diagnosis for this admission?: Yes (5) Kerwin-Gastaut syndrome, intractable, with status epilepticus Is this a current diagnosis for this admission?: Yes - Additional Information Resuscitation Status: Full Code Discharge Diet: As Tolerated Discharge Activity: Activity As Tolerated Referrals: JOHNY SHAH DO [Primary Care Provider] - Follow up as needed Prescriptions: Amox Tr/Potassium Clavulanate [Augmentin Es 600 mg-42.9 mg Susp 75 ml] 600 mg PO Q12 #1 ml Home Medications: Cannabidiol (Cbd) Extract [Epidiolex] 100 mg PO BID 03/11/19 Cetirizine HCl [24Hour Allergy] 10 mg PEG DAILY 03/11/19 Clobazam [Onfi] 20 mg PEG QAM@0900 03/11/19 Clobazam [Onfi] 30 mg PEG QHS@2100 03/11/19 Docusate Sodium [Pedia-Lax Stool Softener] 30 ml PO Q12@0630,1830 03/11/19 Levetiracetam 1,200 mg PEG Q12@0900,2100 03/11/19 Perampanel [Fycompa] 12 mg PEG QHS 03/11/19 Pyridoxine HCl [Vitamin B-6] 100 mg PEG DAILY 03/11/19 Zonisamide [Zonegran] 200 mg PEG Q12@0900,2100 03/11/19 Amox Tr/Potassium Clavulanate [Augmentin Es 600 mg-42.9 mg Susp 75 ml] 600 mg PO Q12 #1 ml 03/16/19 History of Present Illiness History of Present Illness: JEROME HAWKINS is a 19 year old male from with community acquired pneumonia. 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 Patient was treated initially with IV vancomycin and Zosyn. Patient showed improvement over the course of stay. Patient's family state patient is returning back to his normal baseline mentality at this time. Patient will be sent home continued on Augmentin 600 mg per tube every 12 hours. Patient will follow-up with primary care procedures 1 week. Patient's family is in agreement with plan of care. Physical Exam Vital Signs: Temp Pulse Resp BP Pulse Ox 98.1 F 85 19 107/44 L 93 03/16/19 08:33 03/16/19 08:33 03/16/19 08:33 03/16/19 08:33 03/16/19 08:33 Intake & Output 03/15/19 03/16/19 03/17/19 06:59 06:59 06:59 Intake Total 1784 620 Balance 1784 620 Weight 69.6 kg General appearance: PRESENT: no acute distress, well-developed, well-nourished Neck exam: ABSENT: carotid bruit, JVD, lymphadenopathy, thyromegaly Respiratory exam: PRESENT: clear to auscultation catracho. ABSENT: rales, rhonchi, wheezes Cardiovascular exam: PRESENT: RRR. ABSENT: diastolic murmur, rubs, systolic murmur Pulses: PRESENT: +1 pedal pulses bilateral Vascular exam: PRESENT: normal capillary refill GI/Abdominal exam: PRESENT: normal bowel sounds, soft. ABSENT: distended, guarding, mass, organolmegaly, rebound, tenderness Extremities exam: PRESENT: full ROM. ABSENT: calf tenderness, clubbing, pedal edema Neurological exam: PRESENT: awake Psychiatric exam: PRESENT: appropriate affect, normal mood. ABSENT: homicidal ideation, suicidal ideation Skin exam: PRESENT: dry, intact, warm. ABSENT: cyanosis, rash Results Laboratory Results: WBC 6.2 10^3/uL (4.0-10.5) 03/16/19 06:12 RBC 4.58 10^6/uL (4.35-5.55) 03/16/19 06:12 Hgb 13.3 g/dL (13.5-17.0) L 03/16/19 06:12 Hct 41.0 % (37.9-51.0) 03/16/19 06:12 MCV 90 fl (80-97) 03/16/19 06:12 MCH 29.0 pg (27.0-33.4) 03/16/19 06:12 MCHC 32.4 g/dL (32.0-36.0) 03/16/19 06:12 RDW 14.3 % (11.5-14.0) H 03/16/19 06:12 Plt Count 213 10^3/uL (150-450) 03/16/19 06:12 Lymph % (Auto) Not Reportable 03/11/19 12:00 [place] % (Auto) Not Reportable 03/11/19 12:00 Eos % (Auto) Not Reportable 03/11/19 12:00 Baso % (Auto) Not Reportable 03/11/19 12:00 Absolute Neuts (auto) Not Reportable 03/11/19 12:00 Absolute Lymphs (auto) Not Reportable 03/11/19 12:00 Absolute Monos (auto) Not Reportable 03/11/19 12:00 Absolute Eos (auto) Not Reportable 03/11/19 12:00 Absolute Basos (auto) Not Reportable 03/11/19 12:00 Total Counted 100 03/11/19 12:00 Seg Neutrophils % Not Reportable 03/11/19 12:00 Seg Neuts % (Manual) 37 % (42-78) L 03/11/19 12:00 Band Neutrophils % 3 % (3-5) 03/11/19 12:00 Lymphocytes % (Manual) 40 % (13-45) 03/11/19 12:00 Atypical Lymphs % 8 % (0) 03/11/19 12:00 Monocytes % (Manual) 10 % (3-13) 03/11/19 12:00 Eosinophils % (Manual) 2 % (0-6) 03/11/19 12:00 Basophils % (Manual) 0 % (0-2) 03/11/19 12:00 Abs Neuts (Manual) 4.8 10^3/uL (1.7-8.2) 03/11/19 12:00 Abs Lymphs (Manual) 5.8 10^3/uL (0.5-4.7) H 03/11/19 12:00 Abs Monocytes (Manual) 1.2 10^3/uL (0.1-1.4) 03/11/19 12:00 Absolute Eos (Manual) 0.2 10^3/uL (0.0-0.6) 03/11/19 12:00 Abs Basophils (Manual) 0.0 10^3/uL (0.0-0.2) 03/11/19 12:00 Platelet Comment ADEQUATE 03/11/19 12:00 Anisocytosis SLIGHT 03/11/19 12:00 PT 13.7 SEC (11.4-15.4) 03/11/19 12:00 INR 1.05 03/11/19 12:00 VBG pH 7.41 (7.30-7.42) 03/11/19 12:00 VBG pCO2 39.8 mmHg (35-63) 03/11/19 12:00 VBG HCO3 24.5 mmol/L (20-32) 03/11/19 12:00 VBG Base Excess -0.1 mmol/L 03/11/19 12:00 Sodium 147.0 mmol/L (137-145) H 03/16/19 06:12 Potassium 4.1 mmol/L (3.6-5.0) 03/16/19 06:12 Chloride 118 mmol/L (98-107) H 03/16/19 06:12 Carbon Dioxide 20 mmol/L (22-30) L 03/16/19 06:12 Anion Gap 9 (5-19) 03/16/19 06:12 BUN 4 mg/dL (7-20) L 03/16/19 06:12 Creatinine 0.62 mg/dL (0.52-1.25) 03/16/19 06:12 Est GFR ( Amer) > 60 (>60) 03/16/19 06:12 Est GFR (MDRD) Non-Af > 60 (>60) 03/16/19 06:12 Glucose 84 mg/dL (75-110) 03/16/19 06:12 POC Glucose 77 mg/dL (70-110) 03/11/19 12:39 Lactic Acid 1.7 mmol/L (0.7-2.1) 03/11/19 12:00 Calcium 8.5 mg/dL (8.4-10.2) 03/16/19 06:12 Phosphorus 2.9 mg/dL (2.5-4.5) 03/12/19 03:33 Magnesium 1.9 mg/dL (1.6-2.3) 03/12/19 03:33 Total Bilirubin 0.2 mg/dL (0.2-1.3) 03/15/19 04:34 Direct Bilirubin 0.1 mg/dL (0.0-0.4) 03/15/19 04:34 Neonat Total Bilirubin Not Reportable 03/15/19 04:34 Neonat Direct Bilirubin Not Reportable 03/15/19 04:34 Neonat Indirect Bili Not Reportable 03/15/19 04:34 AST 75 U/L (17-59) H 03/15/19 04:34 ALT 120 U/L (<50) 03/15/19 04:34 Alkaline Phosphatase 86 U/L (38-126) 03/15/19 04:34 Troponin I < 0.012 ng/mL 03/11/19 12:00 Total Protein 5.7 g/dL (6.3-8.2) L 03/15/19 04:34 Albumin 2.9 g/dL (3.5-5.0) L 03/15/19 04:34 Urine Color YELLOW 03/11/19 12:17 Urine Appearance CLEAR 03/11/19 12:17 Urine pH 6.0 (5.0-9.0) 03/11/19 12:17 Ur Specific [place] 1.016 03/11/19 12:17 Urine Protein NEGATIVE mg/dL (NEGATIVE) 03/11/19 12:17 Urine Glucose (UA) NEGATIVE mg/dL (NEGATIVE) 03/11/19 12:17 Urine Ketones NEGATIVE mg/dL (NEGATIVE) 03/11/19 12:17 Urine Blood NEGATIVE (NEGATIVE) 03/11/19 12:17 Urine Nitrite (Reflex) NEGATIVE (NEGATIVE) 03/11/19 12:17 Urine Bilirubin NEGATIVE (NEGATIVE) 03/11/19 12:17 Urine Urobilinogen NEGATIVE mg/dL (<2.0) 03/11/19 12:17 Leukocyte Esterase Rfl NEGATIVE (NEGATIVE) 03/11/19 12:17 Urine RBC (Auto) 4 /HPF 03/11/19 12:17 Urine WBC (Reflex) 2 /HPF 03/11/19 12:17 Squamous Epi Cells Auto <1 /HPF 03/11/19 12:17 Urine Mucus (Auto) RARE /LPF 03/11/19 12:17 Urine Ascorbic Acid 40 (NEGATIVE) H 03/11/19 12:17 Time Trough Drawn 1650 03/12/19 16:50 Vancomycin Trough 20.2 ug/mL (5.0-20.0) H 03/12/19 16:50 03/11/19 12:00 Troponin I < 0.012 Impressions: Chest X-Ray 03/11/19 12:49 IMPRESSION: WORSENING PERIHILAR INFILTRATES, PROBABLY DUE TO PNEUMONIA. Knee X-Ray 03/11/19 13:29 IMPRESSION: CHRONIC SKELETAL CHANGES. OTHERWISE NO ACUTE OR SIGNIFICANT FINDINGS. Plan Time Spent: Greater than 30 Minutes Stroke Is this a Stroke Patient?: No Acute Heart Failure - Is this a Heart Failure Patient?: No
[2019-03-16 11:42] VITALS: BP 104/49
== END 2019-03-16 12:04 | disposition home health service (06) | DRG 194 ==
LOC: ER 11:21 → EH 13:38 → 3N 16:32
PROVIDERS: ADMIT Family Medicine; ATTEND Family Medicine
DX: J18.9 Pneumonia, unspecified organism (principal); G40.814 Lennox-Gastaut syndrome, intractable, without status epilepticus; R00.0 Tachycardia, unspecified; Z93.1 Gastrostomy status; Z74.01 Bed confinement status; Z23 Encounter for immunization; E63.8 Other specified nutritional deficiencies
CPT/HCPCS: 36415; 71045; 80048; 80053; 80202; 81001; 82803; 82962; 83605; 83735; 84100; 84484; 85025; 85027; 85610; 87040; 90686; 93005; 93010; 96361; 96365; 96375; 99285; J0456; J0610; J0696; J1644; J1885; J2543; J3370; J3490; J7030; J7050; J7060; J7620

== ENCOUNTER 2019-09-28 09:49 | Day surgery (SDC) | payer BC, MEDICAID ==
[~2019-09-28 09:49] MED LIST: LIDOCAINE 2% JELLY 5 ML TUBE ONE
[2019-09-28] MEDS ORDERED: LIDOCAINE 2% JELLY 5 ML TUBE ONE (11:24)
[2019-09-28] MEDS ORDERED: PROPOFOL INJ 200 MG/20 ML VIAL IV ONE (12:22)
--- NOTE | 2019-09-28 13:22 | Operative Report ---
Operative Report DATE OF SURGERY: 09/28/19 Operative Report: The risks benefits and alternatives of the procedure explained to the patient in detail and informed consent is obtained.A GIF Olympus video scope was inserted into the patient's mouth and hypopharynx, the esophagus is identified intubated and insufflated, the scope was then advanced through the esophagus stomach and duodenum ,retroflexion maneuver is done the esophagus stomach and first and second portions of the duodenum examined PREOPERATIVE DIAGNOSIS: Malfunctioning and leaking percutaneous gastrostomy tube that was placed 2 years ago. Attempted bedside change unsuccessful. Stoma is too small. POSTOPERATIVE DIAGNOSIS: EGD assisted percutaneous gastrostomy tube change. Duodenitis status post biopsy OPERATION: EGD with biopsy SURGEON: IGNACIO BOGGS ANESTHESIA: LMAC TISSUE REMOVED OR ALTERED: As noted above. COMPLICATIONS: None. ESTIMATED BLOOD LOSS: None. INTRAOPERATIVE FINDINGS: As noted above. New Jesús tube 20 [place] 4.5 cm placed. PROCEDURE: Patient tolerated the procedure well. No immediate postprocedure complications are noted. Patient is discharged in good condition. Discharge date 09/28/2019. Discharge diet: Regular. Discharge activity: Regular. 2 to 3-week follow-up to discuss findings. Patient is instructed to call the office or proceed to the emergency room should there be any further problems or questions.
[2019-09-28 15:02] VITALS: BP 117/65
== END 2019-09-28 14:05 | disposition home or self-care (01) ==
LOC: OROUT 09:49 → EDSTATUS 10:00 → OROUT 14:05
PROVIDERS: ATTEND Internal Medicine Gastroenterology
DX: K94.23 Gastrostomy malfunction (principal); K52.9 Noninfective gastroenteritis and colitis, unspecified; G40.909 Epilepsy, unspecified, not intractable, without status epilepticus
CPT/HCPCS: 43239; 43762; 88305 ×2; J2704; 731